=== PATIENT | female | born 1975 | race Caucasian/White ===

== ENCOUNTER → 2016-12-28 | Outpatient (CLI) | payer OTHER | LOC: MAMO 15:12 | DX: Z12.31 Encounter for screening mammogram for malignant neoplasm of breast (principal); R92.0 Mammographic microcalcification found on diagnostic imaging of breast | CPT/HCPCS: G0202 ==

== ENCOUNTER → 2020-07-24 | Outpatient (CLI) | payer OTHER ==
[2020-07-24 12:03] LABS: HEMOGLOBIN 13.9 gm/dl (12.3-15.3); RED BLOOD COUNT 4.52 M/UL (4.00-5.10); WHITE BLOOD COUNT 6.2 K/UL (4.5-11.0)
[2020-07-24 15:15] LABS: BUN/CREATININE RATIO 20 (0-10)
== END ==
LOC: LAB 11:17
PROVIDERS: Nurse Practitioner Family
DX: E11.9 Type 2 diabetes mellitus without complications (principal); E78.5 Hyperlipidemia, unspecified; E66.9 Obesity, unspecified; D64.9 Anemia, unspecified; Z68.34 Body mass index [BMI] 34.0-34.9, adult
CPT/HCPCS: 36415; 80053; 80061; 82570; 82728; 83540; 83550; 84156; 84439; 84443; 85025

== ENCOUNTER → 2021-01-22 | Outpatient (CLI) | payer OTHER ==
[~2021-01-22] MED LIST: CYCLOBENZAPRINE10 MG PO; IBUPROFEN800 MG PO
[2021-01-22 10:27] LABS: HEMOGLOBIN 13.5 gm/dl (12.3-15.3); RED BLOOD COUNT 4.3 M/UL (4.00-5.10); WHITE BLOOD COUNT 6.1 K/UL (4.5-11.0)
[2021-01-22 10:57] LABS: BUN/CREATININE RATIO 24 (0-10)
== END ==
LOC: LAB 09:33
PROVIDERS: Nurse Practitioner Family
DX: E11.9 Type 2 diabetes mellitus without complications (principal); E78.5 Hyperlipidemia, unspecified
CPT/HCPCS: 80053; 80061; 85025

== ENCOUNTER 2021-02-11 11:46 | Emergency (ER) | payer OTHER ==
[2021-02-11 13:37] LABS: HEMOGLOBIN 15.5 gm/dl (12.3-15.3); RED BLOOD COUNT 4.91 M/UL (4.00-5.10); WHITE BLOOD COUNT 8.5 K/UL (4.5-11.0)
[2021-02-11 13:44] LABS: BUN/CREATININE RATIO 18 (0-10)
[2021-02-11] MEDS ORDERED: IBUPROFEN800 MG PO (16:28)
[2021-02-11] MEDS ORDERED: CYCLOBENZAPRINE10 MG PO (16:56)
== END 2021-02-11 16:49 | disposition home or self-care (01) ==
LOC: ER1 11:46
PROVIDERS: Nurse Practitioner
DX: S29.011A Strain of muscle and tendon of front wall of thorax, initial encounter (principal); E11.9 Type 2 diabetes mellitus without complications; X50.0XXA Overexertion from strenuous movement or load, initial encounter; F17.200 Nicotine dependence, unspecified, uncomplicated
CPT/HCPCS: 71260; 80053; 81001; 82550; 82553; 83690; 84484; 84703; 85025; 85652; 86140; 93005; 96374; 99284; J1885; Q9967

== ENCOUNTER → 2021-03-16 | Outpatient (CLI) | payer OTHER | LOC: MAMO 11:30 | DX: Z12.31 Encounter for screening mammogram for malignant neoplasm of breast (principal) | CPT/HCPCS: 77063; 77067 ==

== ENCOUNTER → 2021-08-12 | Outpatient (CLI) | payer OTHER ==
[2021-08-12 10:16] LABS: HEMOGLOBIN 12.9 gm/dl (12.3-15.3); RED BLOOD COUNT 4.29 M/UL (4.00-5.10); WHITE BLOOD COUNT 5.7 K/UL (4.5-11.0)
[2021-08-13 08:14] LABS: A/G RATIO 1.8 (1.2-2.2); ALKALINE PHOSPHATASE, S 45 IU/L (44-121); ALT (SGPT) 17 IU/L (0-32); AST (SGOT) 20 IU/L (0-40); BILIRUBIN, TOTAL <0.2 mg/dL (0.0-1.2); BUN 16 mg/dL (6-24); BUN/CREATININE RATIO 25 (9-23); CALCIUM, SERUM 9.1 mg/dL (8.7-10.2); CARBON DIOXIDE, TOTAL 21 mmol/L (20-29); CHLORIDE, SERUM 104 mmol/L (96-106); CHOLESTEROL, TOTAL 217 mg/dL (100-199); CREATININE, SERUM 0.65 mg/dL (0.57-1.00); EGFR IF AFRICN AM 121 (>59); EGFR IF NONAFRICN AM 105 (>59); GLOBULIN, TOTAL 2.4 g/dL (1.5-4.5); GLUCOSE, SERUM 131 mg/dL (65-99); HDL CHOLESTEROL 64 mg/dL (>39); LDL CHOLESTEROL CALC 123 mg/dL (0-99); LDL/HDL RATIO 1.9 ratio (0.0-3.2); POTASSIUM, SERUM 4.6 mmol/L (3.5-5.2); PROTEIN, TOTAL, SERUM 6.7 g/dL (6.0-8.5); SODIUM, SERUM 139 mmol/L (134-144); T. CHOL/HDL RATIO 3.4 ratio (0.0-4.4); TRIGLYCERIDES 171 mg/dL (0-149); VITAMIN D, 25-HYDROXY 31.6 ng/mL (30.0-100.0)
== END ==
LOC: LAB 09:45
PROVIDERS: Nurse Practitioner Family
DX: E11.9 Type 2 diabetes mellitus without complications (principal)
CPT/HCPCS: 36415; 80053; 80061; 82570; 82607; 84156; 84439; 84443; 85025

== ENCOUNTER → 2022-02-17 | Outpatient (CLI) | payer OTHER ==
[2022-02-17 11:07] LABS: BUN/CREATININE RATIO 29 (0-10)
== END ==
LOC: LAB 10:22
PROVIDERS: Nurse Practitioner Family
DX: Z13.29 Encounter for screening for other suspected endocrine disorder (principal); E11.9 Type 2 diabetes mellitus without complications; E78.5 Hyperlipidemia, unspecified
CPT/HCPCS: 36415; 80053; 80061; 84439; 84443

== ENCOUNTER → 2022-03-24 | Outpatient (CLI) | payer OTHER | LOC: MAMO 09:30 | DX: Z12.31 Encounter for screening mammogram for malignant neoplasm of breast (principal) | CPT/HCPCS: 77063; 77067 ==